=== PATIENT | male | born 1965 ===

== ENCOUNTER 2019-10-08 08:04 | Emergency (ER) | payer OTHER ==
[2019-10-08 08:11] VITALS: BP 103/70; PULSE 82; RESP 16; TEMP 98
--- NOTE | 2019-10-08 08:16 | ED ---
General Adult HPI - General Chief complaint: Needlestick/Exposure Stated complaint: needle stick-[facility] Time Seen by Provider: 10/08/19 08:12 Source: patient, RN notes reviewed Mode of arrival: ambulatory Limitations: no limitations - History of Present Illness Initial comments: 54-year-old male present emergency from for needlestick. 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 Patient states that he was doing an injection when he accidentally Poked himself with a needle after the injection. Patient states there is no history of communicable diseases including HIV and hepatitis from the patient. He states that he is up-to-date on his tetanus. Patient offers no complaints. - Related Data Allergies Allergy/AdvReac Type Severity Reaction Status Date / Time latex Allergy Rash/Hives Verified 10/08/19 08:08 meperidine [From Demerol] Allergy Confusion Verified 10/08/19 08:08 Review of Systems ROS Statement: Those systems with pertinent positive or pertinent negative responses have been documented in the HPI. ROS Other: All systems not noted in ROS Statement are negative. Past Medical History Past Medical History: Diabetes Mellitus History of Any Multi-Drug Resistant Organisms: None Reported Past Surgical History: No Surgical Hx Reported Past Psychological History: No Psychological Hx Reported Smoking Status: Never smoker Past Alcohol Use History: None Reported Past Drug Use History: None Reported General Exam Limitations: no limitations General appearance: alert, in no apparent distress Respiratory exam: Present: normal lung sounds bilaterally. Absent: respiratory distress, wheezes, rales, rhonchi, stridor Cardiovascular Exam: Present: regular rate, normal rhythm, normal heart sounds. Absent: systolic murmur, diastolic murmur, rubs, gallop, clicks Extremities exam: Present: other (Puncture wound to left hand) Course Vital Signs 10/08/19 08:09 Temperature 98 F Pulse Rate 82 Respiratory 16 Rate Blood Pressure 103/70 O2 Sat by Pulse 100 Oximetry Medical Decision Making - Medical Decision Making Rapid HIV was performed, negative. Patient be discharged in stable condition. Disposition Clinical Impression: Needle stick injury Disposition: HOME SELF-CARE Condition: Stable Instructions (If sedation given, give patient instructions): Needle Stick Injuries (ED) Additional Instructions: Please return to the Emergency Department if symptoms worsen or any other concerns. Is patient prescribed a controlled substance at d/c from ED?: No Referrals: Nonstaff,Physician [Primary Care Provider] - 1-2 days Time of Disposition: 08:16
[2019-10-08 15:47] LABS: Hepatitis B Surface AB- Quant 37.9 mIU/mL; Hepatitis B Surface Antibody Reactive (Non-Reactive); Hepatitis C IgG Antibody Non-Reactive (Non-Reactive)
[2019-10-08 17:03] LABS: HIV 1 AB Non-Reactive (Non-Reactive); HIV 2 AB Non-Reactive (Non-Reactive); HIV AB P24 Non-Reactive (Non-Reactive); HIV P24 AG Non-Reactive (Non-Reactive)
== END 2019-10-08 08:20 | disposition home or self-care (01) ==
LOC: EC 08:04
DX: S61.432A Puncture wound without foreign body of left hand, initial encounter (principal); Z88.5 Allergy status to narcotic agent; Z91.040 Latex allergy status; W46.0XXA Contact with hypodermic needle, initial encounter; Y93.89 Activity, other specified; Y92.239 Unspecified place in hospital as the place of occurrence of the external cause; Y99.0 Civilian activity done for income or pay
CPT/HCPCS: 86706; 86803; 87390; 99282

== ENCOUNTER 2019-11-26 17:32 | Emergency (ER) | payer BC ==
[2019-11-26 17:38] VITALS: RESP 20; TEMP 97.9
--- NOTE | 2019-11-26 18:32 | XR ---
EXAMINATION TYPE: XR chest 1V DATE OF EXAM: 11/26/2019 HISTORY: Shortness of breath. COMPARISON: None. TECHNIQUE: Single view of the chest is submitted. FINDINGS: Demonstrated are scattered senescent parenchymal change. There is no evidence for focal infiltrate. The heart is stable. Hilar and mediastinal structures are within normal limits. Degenerative changes are seen of the dorsal spine. IMPRESSION: 1. Chronic changes without evidence for acute pulmonary disease.
--- NOTE | 2019-11-26 18:47 | ED ---
General Adult HPI - General Chief complaint: Shortness of Breath Stated complaint: R/O COVID Source: patient Mode of arrival: ambulatory Limitations: no limitations - History of Present Illness Initial comments: The patient is a 54-year-old male with past history of diabetes and hypertension presents emergency room with reported cough, fatigue, shortness of breath and fevers. 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 States that he has had the symptoms for the past 3 days. He has had contact with multiple Covid patient's on the floor and is concerned that he may have contracted the virus. He denies any chest pain. No abdominal pain, nausea, vomiting or diarrhea. Does admit to a sore scratchy throat. There are no alleviating, precipitating or modifying factors - Related Data Home Medications Medication Instructions Recorded Confirmed Lisinopril [Zestril] 2.5 mg PO DAILY 11/26/19 11/26/19 Simvastatin [Zocor] 20 mg PO HS 11/26/19 11/26/19 metFORMIN HCL 500 mg PO Q8H 11/26/19 11/26/19 Allergies Allergy/AdvReac Type Severity Reaction Status Date / Time latex Allergy Rash/Hives Verified 11/26/19 18:05 meperidine [From Demerol] Allergy Confusion Verified 11/26/19 18:05 Review of Systems ROS Statement: Those systems with pertinent positive or pertinent negative responses have been documented in the HPI. ROS Other: All systems not noted in ROS Statement are negative. 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 A thorough history and physical exam was performed. The patient's lung recio are clear. No signs of respiratory distress. No conversational dyspnea. As the patient is a healthcare worker and symptomatic we did test the patient for Covid. A chest x- ray was performed which demonstrates chronic changes without evidence for acute cardiopulmonary disease. I discuss results patient. I did offer additional testing to include laboratory studies however the patient refused. At this time the patient does appear well enough to go home. We will call him for positive results. The patient has any new or worsening symptoms has increasing oxygen needs he should come back to the emergency room. The patient understood this and is discharged home in stable condition Disposition Clinical Impression: Cough Disposition: HOME SELF-CARE Condition: Stable Instructions (If sedation given, give patient instructions): Shortness of Breath (ED) Additional Instructions: We will call you for positive results. Return to the emergency room for any new or worsening symptoms Is patient prescribed a controlled substance at d/c from ED?: No Referrals: Nonstaff,Physician [Primary Care Provider] - 1-2 days Time of Disposition: 18:47
[2019-11-26 18:56] VITALS: BP 121/71; PULSE 89
== END 2019-11-26 18:57 | disposition home or self-care (01) ==
LOC: EC 17:32
DX: R05 Cough (principal); R06.02 Shortness of breath; R53.83 Other fatigue; R50.9 Fever, unspecified; E11.9 Type 2 diabetes mellitus without complications; Z79.84 Long term (current) use of oral hypoglycemic drugs; Z79.899 Other long term (current) drug therapy; Z91.040 Latex allergy status; Z88.5 Allergy status to narcotic agent
CPT/HCPCS: 71045; 99284; U0002